=== PATIENT | female | born 2000 | race African-American/Black ===

== ENCOUNTER 2022-08-13 13:44 | Emergency (ER) | payer OTHER ==
[~2022-08-13] VITALS: Ht 170.2 cm; Wt 58.3 kg
[2022-08-13] MEDS ORDERED: ONDANSETRON 4MG 2ML VIAL IV ONE (15:20)
[2022-08-13] MEDS ORDERED: PANTOPRAZOLE 40MG TAB (PROTONIX) PO ONE (15:20)
[2022-08-13] MEDS ORDERED: GI COCKTAIL 50ML BTL(HYOSCYAMINE/MAALOX/LIDOCAINE VISCOUS)(1:3:1) PO ONE (15:20)
[2022-08-13] MEDS ORDERED: ONDANSETRON 4MG ORAL DISINTEGRATING TAB PO ONE (15:25)
[2022-08-13 15:51] LABS: BASO # 0.1 10^3/uL (0.0-0.2); BASO % 0.4 % (0.0-1.0); EOS # 0.1 10^3/uL (0.0-0.5); EOS % 0.9 % (0.0-3.0); HEMATOCRIT 39.4 % (36.0-47.0); HEMOGLOBIN 13.3 g/dl (12.0-15.5); LYMPH # 1.7 10^3/uL (1.5-5.0); LYMPH % 14.8 % (24.0-44.0); MEAN CORPUSCULAR HEMOGLOBIN 30.4 pg (27.0-33.0); MEAN CORPUSCULAR HGB CONC 33.8 g/dl (32.0-36.5); MONO # 0.5 10^3/uL (0.0-0.8); MONO % 4.3 % (2.0-8.0); NEUTROPHILS # 9.1 10^3/uL (1.5-8.5); NEUTROPHILS % 79.3 % (36.0-66.0); PLATELET COUNT, AUTOMATED 346 10^3/uL (150-450); RED BLOOD COUNT 4.38 10^6/uL (4.00-5.40); WHITE BLOOD COUNT 11.5 10^3/uL (4.0-10.0)
[2022-08-13 16:07] LABS: BILIRUBIN,DIRECT 0.3 MG/DL (<0.4); BILIRUBIN,TOTAL 1.2 MG/DL (0.3-1.2); TOTAL PROTEIN 7.5 G/DL (5.7-8.2)
[2022-08-13 18:29] VITALS: BP 168/85
[2022-08-13] MEDS ORDERED: OMEP40CA4 PO (18:39)
[2022-08-13] MEDS ORDERED: ONDA4TAB6 PO (18:39)
== END 2022-08-13 20:17 | disposition home or self-care (01) ==
LOC: M ED 13:44
DX: K21.9 Gastro-esophageal reflux disease without esophagitis (principal); F10.10 Alcohol abuse, uncomplicated; Z79.83 Long term (current) use of bisphosphonates